=== PATIENT | female | born 1995 | race Two or more races ===

== ENCOUNTER 2020-06-06 20:10 | Emergency (ER) | payer OTHER ==
[~2020-06-06] VITALS: Ht 167.6 cm; Wt 77.3 kg
[2020-06-06 21:14] VITALS: BP 108/70
== END 2020-06-06 21:19 | disposition home or self-care (01) ==
LOC: EMS 20:13
DX: F41.9 Anxiety disorder, unspecified (principal); F32.9 Major depressive disorder, single episode, unspecified
CPT/HCPCS: 99283